=== PATIENT | male | born 1950 | race Caucasian/White ===

== ENCOUNTER 2020-03-13 17:28 | Emergency (ER) | payer MEDICARE, SELFPAY ==
[2020-03-13 17:32] VITALS: BP 142/99; PULSE 104; RESP 18; TEMP 37.6; O2SAT 98; BMI 28.8
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
--- NOTE | 2020-03-13 18:34 | PC.NURSE ---
Pt to rad.
--- NOTE | 2020-03-13 18:58 | PC.NURSE ---
Pt returned from rad.
[2020-03-13 19:46] VITALS: BP 137/87; PULSE 89; RESP 16; O2SAT 98
[2020-03-13 19:59] VITALS: BP 137/87; PULSE 89; RESP 16; TEMP 37.6; O2SAT 98
== END 2020-03-13 20:11 | disposition home or self-care (01) ==
PROVIDERS: Emergency Provider Emergency Medicine; PCP Family Medicine
DX: S41.112A Laceration without foreign body of left upper arm, initial encounter (principal); M62.830 Muscle spasm of back; Z23 Encounter for immunization; W22.8XXA Striking against or struck by other objects, initial encounter; Y93.I9 Activity, other involving external motion; Y92.017 Garden or yard in single-family (private) house as the place of occurrence of the external cause
CPT/HCPCS: 12001; 72125; 72128; 72131; 90471; 90715; 96372; 99282